=== PATIENT | female | born 1995 | race Two or more races ===

== ENCOUNTER 2025-08-15 09:25 | Observation (INO) | payer MEDICAID ==
--- NOTE | 2025-08-15 10:32 | DVH ---
BIOPHYSICAL PROFILE HISTORY: GDM TECHNIQUE: Multiple transabdominal real-time grayscale sonographic images through the gravid uterus of the fetus with duplex Doppler color flow and M-mode spectral analysis FINDINGS: BIOPHYSICAL PROFILE: breathing score: 2 movement score: 2 tone score: 2 Quantitative PHOENIX score: 2 (PHOENIX: 12.4 cm, MVP: 3.8 cm.) Total score: 8/8 The cervix obscured by head Single live fetus in cephalic presentation. heart rate 142 beats per minute. Posterior Grade 2 placenta without previa or abruption Single live fetus at 33w, 3 days Biophysical profile score 8/8 corresponding to an CAROL of 09/30/2025 IMPRESSION: 1. Biophysical profile score: 8/8
[2025-08-15 11:25] LABS: Hematocrit 36.1 % (36.0-46.0); Hemoglobin 12.4 g/dL (12.2-16.2); Mean Corpuscular Hemoglobin 31.5 pg (28.0-32.0); Mean Corpuscular Volume 91.6 fL (80.0-100.0); Nucleated Red Blood Cells % 0.0 %
[2025-08-15] MEDS ORDERED: LABE300T5 PO (11:26)
[2025-08-15] MEDS ORDERED: ASPI-543 PO (11:26)
[2025-08-15] MEDS ORDERED: PREN1TAB71 OR (11:26)
[2025-08-15 11:40] LABS: Alanine Aminotransferase 17 U/L (7-40); Albumin 3.8 g/dL (3.2-4.8); Anion Gap 11 (5-15); BUN/Creatinine Ratio 14.6 (10.0-20.0); Calcium 9.3 mg/dL (8.7-10.4); Carbon Dioxide 23 mmol/L (20-31); Chloride 105 mmol/L (98-107); Glucose 81 mg/dL (74-106); INR 0.97 (0.9-1.15); Partial Thromboplastin Time 26.8 SEC (24.5-34.5); Potassium 4.1 mmol/L (3.5-5.1); Prothrombin Time 10.3 sec (9.3-11.8); Sodium 139 mmol/L (136-145); Total Protein 7.0 g/dL (5.7-8.2); Uric Acid 4.1 mg/dL (3.1-7.8)
[2025-08-15 11:41] LABS: Bilirubin, Total 0.4 mg/dL (0.2-1.0)
[2025-08-15 11:45] LABS: Alkaline Phosphatase 117 U/L (46-116); Blood Urea Nitrogen 7 mg/dL (9-23)
[2025-08-15 11:52] LABS: Urine Protein, UAD 1+ (Negative)
[2025-08-15 11:59] LABS: Protein, Urine 56.6 mg/dL (1-14)
--- NOTE | 2025-08-15 12:46 | DVHDS2 ---
Physician Discharge Progress N Final Diagnosis: gdm 30wks Operations or Procedures: Operations or Procedures nst reactive reviwed,sono Condition on Discharge: Good Disposition: Home Discharge Instructions: Diet: Regular, Consistent carbohydrate Activity: No Restrictions, As Tolerated Medications: na Follow Up Care: Specialist: 5d Discharge Statement: "Patient was advised to return to the ER or call 911 if any headaches, dizziness, shortness of breath, chest pain, abdominal pain, bleeding, fevers, or worsening of medical condition. Patient was counseled about treatment plan, medications, possible side effects, patientverbalized understanding. All questions were answered to the best of my ability. This discharge took greater then 30 minutes in planning, reviewing documentation, counseling the patient, and discussing with other team members." Visit Coding OBGYN Date of Service: Aug 15, 2025 Billing Provider: MINOR ELIAS DO POST DOCTORAL RESEARCHER Common Visit Codes: [id number] OBS CARE (HIGH) POST DOCTORAL RESEARCHER Procedure Codes: 00425-02- NON-STRESS TEST MINOR ELIAS DO Aug 15, 2025 12:46
== END 2025-08-15 11:45 | disposition home or self-care (01) ==
LOC: LDRP 09:25
PROVIDERS: ADMIT Obstetrics & Gynecology; ATTEND Obstetrics & Gynecology
DX: O24.419 Gestational diabetes mellitus in pregnancy, unspecified control (principal); Z3A.30 30 weeks gestation of pregnancy; Z98.890 Other specified postprocedural states; Z79.899 Other long term (current) drug therapy; Z86.2 Personal history of diseases of the blood and blood-forming organs and certain disorders involving the immune mechanism
CPT/HCPCS: 36415; 59025; 76819; 80053; 81001; 81002; 82570; 84156; 84550; 85025; 85610; 85730; G0378

== ENCOUNTER 2025-08-19 08:05 | Observation (INO) | payer MEDICAID ==
[~2025-08-19 08:05] MED LIST: ASPI-543 PO; LABE300T5 PO; PREN1TAB71 OR
[2025-08-19] MEDS ORDERED: NITR-87 PO (09:25)
--- NOTE | 2025-08-19 10:22 | DVHDS2 ---
Physician Discharge Progress N Final Diagnosis: [facility] 31wks Operations or Procedures: Operations or Procedures nst reactive reviwed,sono Condition on Discharge: Good Disposition: Home Discharge Instructions: Diet: Regular Activity: No Restrictions, As Tolerated Medications: na Follow Up Care: Specialist: 1w Discharge Statement: "Patient was advised to return to the ER or call 911 if any headaches, dizziness, shortness of breath, chest pain, abdominal pain, bleeding, fevers, or worsening of medical condition. Patient was counseled about treatment plan, medications, possible side effects, patientverbalized understanding. All questions were answered to the best of my ability. This discharge took greater then 30 minutes in planning, reviewing documentat ion, counseling the patient, and discussing with other team members." Visit Coding OBGYN Date of Service: Aug 19, 2025 Billing Provider: MINOR ELIAS DO MANAGER ASSURANCE Common Visit Codes: 37100-BYPDPCV OBS CARE (HIGH) MANAGER ASSURANCE Procedure Codes: 39995-79- NON-STRESS TEST MINOR ELIAS DO Aug 19, 2025 10:22
== END 2025-08-19 09:31 | disposition home or self-care (01) ==
LOC: UNDOADMOB 08:05 → LDRP 08:05
PROVIDERS: ADMIT Obstetrics & Gynecology; ATTEND Obstetrics & Gynecology
DX: O13.3 Gestational [pregnancy-induced] hypertension without significant proteinuria, third trimester (principal); Z3A.31 31 weeks gestation of pregnancy; Z98.890 Other specified postprocedural states
CPT/HCPCS: 59025; 81002; 94760; G0378

== ENCOUNTER 2025-08-23 07:57 | Observation (INO) | payer MEDICAID ==
[~2025-08-23 07:57] MED LIST changes: +NITR-87 PO
[2025-08-23 09:49] LABS: Hematocrit 34.9 % (36.0-46.0); Hemoglobin 11.9 g/dL (12.2-16.2); Mean Corpuscular Hemoglobin 31.6 pg (28.0-32.0); Mean Corpuscular Volume 92.5 fL (80.0-100.0); Nucleated Red Blood Cells % 0.1 %
[2025-08-23 09:53] LABS: Urine Protein, UAD 1+ (Negative)
[2025-08-23 09:54] LABS: Protein, Urine 111.2 mg/dL (1-14)
[2025-08-23 10:00] LABS: Alanine Aminotransferase 24 U/L (7-40); Albumin 3.6 g/dL (3.2-4.8); Anion Gap 10 (5-15); BUN/Creatinine Ratio 13.5 (10.0-20.0); Calcium 9.0 mg/dL (8.7-10.4); Carbon Dioxide 24 mmol/L (20-31); Chloride 105 mmol/L (98-107); Glucose 83 mg/dL (74-106); Potassium 3.7 mmol/L (3.5-5.1); Sodium 139 mmol/L (136-145); Total Protein 6.7 g/dL (5.7-8.2)
[2025-08-23 10:01] LABS: Bilirubin, Total 0.3 mg/dL (0.2-1.0)
[2025-08-23 10:03] LABS: Blood Urea Nitrogen 7 mg/dL (9-23)
[2025-08-23 10:04] LABS: INR 0.95 (0.9-1.15); Partial Thromboplastin Time 26.4 SEC (24.5-34.5); Prothrombin Time 10.1 sec (9.3-11.8)
[2025-08-23 10:13] LABS: Uric Acid 4.2 mg/dL (3.1-7.8)
[2025-08-23 10:18] LABS: Alkaline Phosphatase 121 U/L (46-116)
--- NOTE | 2025-08-23 11:51 | DVHDS2 ---
Physician Discharge Progress N Final Diagnosis: pih 31wks Operations or Procedures: Operations or Procedures nst reactive reviwed,sono Condition on Discharge: Good Disposition: Home Discharge Instructions: Diet: Regular Activity: No Restrictions, As Tolerated Medications: na Follow Up Care: Specialist: 3d Discharge Statement: "Patient was advised to return to the ER or call 911 if any headaches, dizziness, shortness of breath, chest pain, abdominal pain, bleeding, fevers, or worsening of medical condition. Patient was counseled about treatment plan, medications, possible side effects, patientverbalized understanding. All questions were answered to the best of my ability. This discharge took greater then 30 minutes in planning, reviewing documentat ion, counseling the patient, and discussing with other team members." Visit Coding OBGYN Date of Service: Aug 23, 2025 Billing Provider: MINOR ELIAS DO SHIPYARD PAINTER APPRENTICE Common Visit Codes: [id number] OBS CARE (HIGH) SHIPYARD PAINTER APPRENTICE Procedure Codes: 42725-52- NON-STRESS TEST MINOR ELIAS DO Aug 23, 2025 11:51
== END 2025-08-23 10:38 | disposition home or self-care (01) ==
LOC: LDRP 07:57
PROVIDERS: ADMIT Obstetrics & Gynecology; ATTEND Obstetrics & Gynecology
DX: O13.3 Gestational [pregnancy-induced] hypertension without significant proteinuria, third trimester (principal); Z3A.31 31 weeks gestation of pregnancy; Z98.890 Other specified postprocedural states
CPT/HCPCS: 36415; 59025; 80053; 81001; 81002; 82570; 84156; 84550; 85025; 85610; 85730; 94760; A4649; G0378

== ENCOUNTER 2025-08-26 08:02 | Observation (INO) | payer MEDICAID ==
[~2025-08-26] VITALS: Ht 167.6 cm; Wt 87.1 kg
--- NOTE | 2025-08-26 09:03 | DVH ---
BIOPHYSICAL PROFILE HISTORY: PIH Comparison Study: US BIOPHYSICAL PROFILE on DOS: 08/15/25 TECHNIQUE: Multiple real-time grayscale sonographic images through the gravid uterus of the fetus with duplex Doppler color flow and M-mode spectral analysis FINDINGS: BIOPHYSICAL PROFILE: breathing score: 2 movement score: 2 tone score: 2 Quantitative PHOENIX score: 2 (PHOENIX: 8.9 Cm.) Total score: 8 The cervix is not visualized Single live fetus in breech presentation. heart rate 134 beats per minute. Posterior placenta without previa or abruption IMPRESSION: Biophysical profile score: 8
[2025-08-26 11:32] LABS: Urine Protein, UAD 1+ (Negative)
[2025-08-26 11:33] LABS: Protein, Urine 97.2 mg/dL (1-14)
[2025-08-26 12:10] LABS: 24 Hr. Total Protein, Urine 1944.0 mg/24 Hr (<149.1); Urine Total Volume, 24 Hours 2000.0 mL
--- NOTE | 2025-08-26 14:27 | DVHDS2 ---
Physician Discharge Progress N Final Diagnosis: testing for PreEclampsia Operations or Procedures: Operations or Procedures 29yo IUP@32.1wks VSS NST reactive FKC/PTL/PreE precautions reviewed. Dr. Guzman consulted, agrees with POC. Laboratory Tests Test 08/26/25 08:10 Range/Units Urine Color Yellow Yellow Urine Clarity Turbid H Clear Urine pH 6.5 5.0-9.0 Urine Specific Warner 1.019 1.001-1.035 Urine Protein 1+ H Negative Urine Ketones Negative Negative Urine Blood 2+ H Negative /uL Urine Nitrite Negative Negative Urine Bilirubin Negative Negative Urine Urobilinogen Normal Negative mg/dL Urine Leukocyte Esterase Negative Negative /uL Urine RBC 11 0 - 4 /hpf Urine Microscopic WBC 7 H 0-5 /HPF Urine Squamous Epithelial Cells Mod <5 /hpf Urine Bacteria None seen None Seen /hpf Urine Mucus Few None Seen Urine Creatinine 135.95 H 30.0-125.0 mg/dL Urine Total Protein 24 Hour 1944.0 <149.1 mg/24 Hr Urine Protein/Creatinine Ratio 0.71 Urine Glucose Normal Normal mg/dL Urine Total Protein 97.2 H 1-14 mg/dL Other Interventions Other Interventions [place] [address] Ph: [phone] DIAGNOSTIC IMAGING Diagnostic Imaging Report : [id number] Signed PATIENT: DAVID PAULACCT: [id number] UNIT: [id number] : 1995 LOC: [facility] ROOM / BED: [facility] / A AGE / SEX: 29 / F ADM STATUS: ADM IN SERVICE [id number] ORDERING PHYSICIAN: ALICIA CHAVEZ CNM PROCEDURE(s): BPP - BIOPHYSICAL PROFILE REASON: [facility] ORDER NUMBER(s): [id number], ACCESSION NUMBER(s): [id number] BIOPHYSICAL PROFILE HISTORY: [facility] Comparison Study: US BIOPHYSICAL PROFILE on DOS: 08/15/25 TECHNIQUE: Multiple real-time grayscale sonographic images through the gravid uterus of the fetus with duplex Doppler color flow and M-mode spectral analysis FINDINGS: BIOPHYSICAL PROFILE: breathing score: 2 movement score: 2 tone score: 2 Quantitative PHOENIX score: 2 (PHOENIX: 8.9 Cm.) Total score: 8 The cervix is not visualized Single live fetus in breech presentation. heart rate 134 beats per minute. Posterior placenta without previa or abruption IMPRESSION: Biophysical profile score: 8 ATED BY: PETER GUZMÁN MD DICTATED DATE/TIME: 08/26/25899 SIGNED BY: PETER GUZMÁN MD SIGNED DATE/TIME: 08/26/25899 CC: Condition on Discharge: Stable Disposition: Home Discharge Instructions: Diet: Regular Activity: No Restrictions, As Tolerated Medications: see med list Follow Up Care: Specialist: f/u in 3 days Discharge Statement: "Patient was advised to return to the ER or call 911 if any headaches, dizziness, shortness of breath, chest pain, abdominal pain, bleeding, fevers, or worsening of medical condition. Patient was counseled about treatment plan, medications, possible side effects, patientverbalized understanding. All questions were answered to the best of my ability. This discharge took greater then 30 minutes in planning, reviewing documentation, counseling the patient, and discussing with other team members." Visit Coding OBGYN Date of Service: Aug 26, 2025 Billing Provider: ALICIA CHAVEZ CNM CLINICAL SYSTEMS EDUCATOR Common Visit Codes: [id number] OBS CARE (HIGH) CLINICAL SYSTEMS EDUCATOR Procedure Codes: 99569-96- NON-STRESS TEST ALICIA CHAVEZ CNM Aug 26, 2025 14:27
== END 2025-08-26 10:24 | disposition home or self-care (01) ==
LOC: UNDOADMOB 08:02 → LDRP 08:02 → UNDODISOB 10:24
PROVIDERS: ADMIT Obstetrics & Gynecology; ATTEND Obstetrics & Gynecology
DX: O13.3 Gestational [pregnancy-induced] hypertension without significant proteinuria, third trimester (principal); Z3A.32 32 weeks gestation of pregnancy; Z98.890 Other specified postprocedural states
CPT/HCPCS: 59025; 76819; 81001; 81002; 82570; 84156; A4649; G0378

== ENCOUNTER 2025-08-29 05:09 | Observation (INO) | payer MEDICAID ==
[~2025-08-29] VITALS: Ht 167.6 cm; Wt 90.7 kg
[2025-08-29 09:09] LABS: Hematocrit 35.8 % (36.0-46.0); Hemoglobin 12.2 g/dL (12.2-16.2); Mean Corpuscular Hemoglobin 31.3 pg (28.0-32.0); Mean Corpuscular Volume 91.7 fL (80.0-100.0); Nucleated Red Blood Cells % 0.1 %
--- NOTE | 2025-08-29 09:26 | DVH ---
BIOPHYSICAL PROFILE HISTORY: PIH TECHNIQUE: Multiple transabdominal real-time grayscale sonographic images through the gravid uterus of the fetus with duplex Doppler color flow and M-mode spectral analysis FINDINGS: BIOPHYSICAL PROFILE: breathing score: 2 movement score: 2 tone score: 2 Quantitative PHOENIX score: 2 (PHOENIX: 13.3 Cm.) Total score: 8 The cervix was not seen Single live fetus in cephalic presentation. heart rate 142 beats per minute. Grade II posterior fundal placenta without previa or abruption IMPRESSION: Biophysical profile score: 8/8
[2025-08-29 09:31] LABS: Urine Protein, UAD Negative (Negative)
[2025-08-29 09:33] LABS: Alanine Aminotransferase 17 U/L (7-40); Albumin 3.8 g/dL (3.2-4.8); Alkaline Phosphatase 127 U/L (46-116); Anion Gap 10 (5-15); BUN/Creatinine Ratio 14.0 (10.0-20.0); Bilirubin, Total 0.3 mg/dL (0.2-1.0); Blood Urea Nitrogen 7 mg/dL (9-23); Calcium 9.4 mg/dL (8.7-10.4); Carbon Dioxide 23 mmol/L (20-31); Chloride 105 mmol/L (98-107); Glucose 88 mg/dL (74-106); Potassium 3.9 mmol/L (3.5-5.1); Sodium 138 mmol/L (136-145); Total Protein 7.0 g/dL (5.7-8.2)
[2025-08-29 09:37] LABS: INR 0.95 (0.9-1.15); Partial Thromboplastin Time 26.2 SEC (24.5-34.5); Prothrombin Time 10.1 sec (9.3-11.8)
[2025-08-29 10:27] LABS: Uric Acid 3.9 mg/dL (3.1-7.8)
[2025-08-29 11:12] LABS: Protein, Urine 21.7 mg/dL (1-14)
[2025-08-29] MEDS: BETAMETHASONE ACET (30mg/5ml) 5ml Vial 6mg/ml IM ONE (11:41)
--- NOTE | 2025-08-29 18:04 | DVHDS2 ---
Physician Discharge Progress N Final Diagnosis: IUP 32 wk, Pre-Eclampsia w/out severe features Secondary Diagnosis: Encounter for surveillance Operations or Procedures: Operations or Procedures NST/BPP/PHOENIX all NORMAL PIH labs normal except elevated P/C ratio, previously elevated 24h urine protein Celestone #1 of 2 given Condition on Discharge: Guarded Disposition: Home Discharge Instructions: Diet: Regular Activity: Light activity Follow Up/Referral: 1 day for 2nd celestone injection Medications: NA Follow Up Care: Discharge Statement: "Patient was advised to return to the ER or call 911 if any headaches, dizziness, shortness of breath, chest pain, abdominal pain, bleeding, fevers, or worsening of medical condition. Patient was counseled about treatment plan, medications, possible side effects, patientverbalized understanding. All questions were answered to the best of my ability. This discharge took greater then 30 minutes in planning, reviewing documentat ion, counseling the patient, and discussing with other team members." Visit Coding OBGYN Date of Service: Aug 29, 2025 Billing Provider: HILARY HANDY DO DENTAL ASSOCIATE Common Visit Codes: 91251-MMJ/OBS SAME DATE (HIGH) DENTAL ASSOCIATE Procedure Codes: 63443-78- NON-STRESS TEST HILARY HANDY DO Aug 29, 2025 18:04
== END 2025-08-29 11:55 | disposition home or self-care (01) ==
LOC: LDRP 08:05 → UNDOADMOB 08:05 → LDRP 08:11
PROVIDERS: ADMIT Obstetrics & Gynecology; ATTEND Obstetrics & Gynecology
DX: O14.03 Mild to moderate pre-eclampsia, third trimester (principal); Z3A.32 32 weeks gestation of pregnancy; Z79.899 Other long term (current) drug therapy; Z98.890 Other specified postprocedural states
CPT/HCPCS: 59025; 76819; 80053; 81001; 82570; 84156; 84550; 85610; 85730; 94760; 96372; A4649; G0378; J0702; 36415; 82575; 85025

== ENCOUNTER 2025-08-30 03:54 | Observation (INO) | payer MEDICAID ==
[~2025-08-30] VITALS: Ht 167.6 cm; Wt 90.7 kg
[~2025-08-30 03:54] MED LIST changes: -NITR-87 PO
--- NOTE | 2025-08-30 13:48 | DVH ---
CLINICAL HISTORY: -induced hypertension. COMPARISON: US BIOPHYSICAL PROFILE on DOS: 08/29/25, US BIOPHYSICAL PROFILE on DOS: 08/26/25, US BIOPHYSICAL PROFILE on DOS: 08/15/25 TECHNIQUE: biophysical profile was performed. Transabdominal sonographic images of the fetus were obtained. FINDINGS: The fetus is in cephalic position. heart rate measures 147 BPM. Amniotic fluid index measures 11.5 cm. The placenta is fundal in position without visualized evidence of previa or abruption. BPP profile is an overall score of 8/8, with 2/2 points for breathing, with at least one episode of breathing over a 30 second duration during a 30 minute observation, 2/2 points for movements, with 3 or more discrete body or limb movements, 2/2 points for tone, with one or more episodes of extremity extension with return to flexion, or opening and closing of hand, and 2/2 points for amniotic fluid, with at least 1 pocket of amniotic fluid that measures 2 cm in 2 perpendicular planes. IMPRESSION: BPP score of 8/8.
[2025-08-30] MEDS: BETAMETHASONE ACET (30mg/5ml) 5ml Vial 6mg/ml IM ONE (14:15)
--- NOTE | 2025-08-30 15:15 | DVHDS2 ---
Physician Discharge Progress N Final Diagnosis: IUP 32 wk, Pre-Eclampsia w/out severe features Secondary Diagnosis: Encounter for surveillance Operations or Procedures: Operations or Procedures NST/BPP/PHOENIX all NORMAL Celestone #2 of 2 given BPs normal Condition on Discharge: Stable Disposition: Home Discharge Instructions: Diet: Regular, Cardiac 2g Na,low cholest Activity: No Restrictions, As Tolerated Follow Up/Referral: as sched Medications: NA Follow Up Care: Discharge Statement: "Patient was advised to return to the ER or call 911 if any headaches, dizziness, shortness of breath, chest pain, abdominal pain, bleeding, fevers, or worsening of medical condition. Patient was counseled about treatment plan, medications, possible side effects, patientverbalized understanding. All questions were answered to the best of my ability. This discharge took greater then 30 minutes in planning, reviewing documentation, counseling the patient, and discussing with other team members." Visit Coding OBGYN Date of Service: Aug 30, 2025 Billing Provider: HILARY HANDY DO SEED TESTER Common Visit Codes: 16179-DQF/OBS SAME DATE (HIGH) SEED TESTER Procedure Codes: 45076-28- NON-STRESS TEST HILARY HANDY DO Aug 30, 2025 15:15
== END 2025-08-30 14:55 | disposition home or self-care (01) ==
LOC: LDRP 12:52
PROVIDERS: ADMIT Obstetrics & Gynecology; ATTEND Obstetrics & Gynecology
DX: O14.03 Mild to moderate pre-eclampsia, third trimester (principal); Z3A.32 32 weeks gestation of pregnancy; Z98.890 Other specified postprocedural states
CPT/HCPCS: 59025; 76819; 81002; 94760; 96372; A4649; G0378

== ENCOUNTER 2025-09-02 06:15 | Observation (INO) | payer MEDICAID ==
[2025-09-02 08:48] LABS: Hematocrit 36.1 % (36.0-46.0); Hemoglobin 12.2 g/dL (12.2-16.2); Mean Corpuscular Hemoglobin 31.0 pg (28.0-32.0); Mean Corpuscular Volume 91.5 fL (80.0-100.0); Nucleated Red Blood Cells % 0.1 %
[2025-09-02 09:09] LABS: Alanine Aminotransferase 21 U/L (7-40); Albumin 3.7 g/dL (3.2-4.8); Anion Gap 11 (5-15); BUN/Creatinine Ratio 22.2 (10.0-20.0); Blood Urea Nitrogen 10 mg/dL (9-23); Calcium 9.2 mg/dL (8.7-10.4); Carbon Dioxide 22 mmol/L (20-31); Chloride 105 mmol/L (98-107); Potassium 3.6 mmol/L (3.5-5.1); Sodium 138 mmol/L (136-145); Total Protein 6.9 g/dL (5.7-8.2); Uric Acid 3.5 mg/dL (3.1-7.8)
[2025-09-02 09:12] LABS: INR 0.94 (0.9-1.15); Partial Thromboplastin Time 24.3 SEC (24.5-34.5); Prothrombin Time 10.0 sec (9.3-11.8)
[2025-09-02 09:20] LABS: Alkaline Phosphatase 121 U/L (46-116); Bilirubin, Total 0.3 mg/dL (0.2-1.0); Glucose 136 mg/dL (74-106)
--- NOTE | 2025-09-02 09:32 | DVH ---
CLINICAL HISTORY: -induced hypertension. COMPARISON: US BIOPHYSICAL PROFILE on DOS: 08/30/25, US BIOPHYSICAL PROFILE on DOS: 08/29/25, US BIOPHYSICAL PROFILE on DOS: 08/26/25 TECHNIQUE: biophysical profile was performed. Transabdominal sonographic images of the fetus were obtained. FINDINGS: The fetus is in cephalic position. heart rate measures 147 BPM. Amniotic fluid index measures 6.6 cm. The placenta is posterior in position. BPP profile is an overall score of 8/8, with 2/2 points for breathing, with at least one episode of breathing over a 30 second duration during a 30 minute observation, 2/2 points for movements, with 3 or more discrete body or limb movements, 2/2 points for tone, with one or more episodes of extremity extension with return to flexion, or opening and closing of hand, and 2/2 points for amniotic fluid, with at least 1 pocket of amniotic fluid that measures 2 cm in 2 perpendicular planes. IMPRESSION: 1. BPP score of 8/8. 2. Amniotic fluid index of 6.6 cm. MVP is 2.7 cm.
[2025-09-02 09:54] LABS: Protein, Urine 104.6 mg/dL (1-14)
[2025-09-02 10:01] LABS: Urine Protein, UAD 1+ (Negative)
--- NOTE | 2025-09-05 13:28 | DVHDS2 ---
Physician Discharge Progress N Final Diagnosis: oligo,chtn with superimposed preeclampsia Operations or Procedures: Operations or Procedures nst reactive cass luong Commentary: Commentary transferred to [facility] dr irvin accepted the transfer Condition on Discharge: Higher Level of Care Disposition: Acute Care Facility Discharge Instructions: Diet: Regular Activity: Bed rest Medications: na Follow Up Care: Specialist: to [facility] Discharge Statement: "Patient was advised to return to the ER or call 911 if any headaches, dizziness, shortness of breath, chest pain, abdominal pain, bleeding, fevers, or worsening of medical condition. Patient was counseled about treatment plan, medications, possible side effects, patientverbalized understanding. All questions were answered to the best of my ability. This discharge took greater then 30 minutes in planning, reviewing documentation, counseling the patient, and discussing with other team members." Visit Coding OBGYN Date of Service: Sep 02, 2025 Billing Provider: MINOR ELIAS DO DRESSING ROOM PORTER Common Visit Codes: 40560-YSGDMHD OBS CARE (HIGH) DRESSING ROOM PORTER Procedure Codes: 63446-12- NON-STRESS TEST MINOR ELIAS DO Sep 05, 2025 13:28
--- NOTE | 2025-09-05 13:30 | DVHTS ---
Transfer Summary Transfer Summary Date of Admission Sep 02, 2025 at 09:30 Date of Transfer: Sep 02, 2025 Transfer Diagnosis chtn with superimposed precelampsia,oligi Brief Hx & Hospital Course: pt has chtn with low sidney subseq pt is transferred to [facility] .dr churchill accepted transfer Transfer to: [facility] Discharge Instructions: stable Transfer Status stable Scheduled Aspirin (Aspir-Low), 81 MG PO DAILY, (Reported) Labetalol Hcl (Labetalol Hcl), 300 MG PO BID, (Reported) Miscellaneous Medications Vit W/ Ferrous Fumara (Pnv Plus Multivi), 1 OR, (Reported) Visit Coding OBGYN Date of Service: Sep 02, 2025 Billing Provider: MINOR ELIAS DO LENS EXAMINER Common Visit Codes: 36286-[id number] OBS CARE (HIGH) LENS EXAMINER Procedure Codes: 52107-36- NON-STRESS TEST MINOR ELIAS DO Sep 05, 2025 13:30
== END 2025-09-02 11:20 | disposition critical access hospital (66) ==
LOC: LDRP 08:05 → UNDOADMOB 08:05 → OBSVTOIN 09:30 → INTOOBSV 09:30 → LDRP 09:30
PROVIDERS: ADMIT Obstetrics & Gynecology; ATTEND Obstetrics & Gynecology
DX: O11.3 Pre-existing hypertension with pre-eclampsia, third trimester (principal); Z3A.33 33 weeks gestation of pregnancy; Z79.899 Other long term (current) drug therapy
CPT/HCPCS: 36415; 59025; 76819; 80053; 81001; 81002; 82570; 84156; 84550; 85025; 85610; 85730; 94760; A4649; G0378

== ENCOUNTER 2025-09-06 02:30 | Observation (INO) | payer MEDICAID ==
[2025-09-06 10:56] LABS: Hematocrit 36.7 % (36.0-46.0); Hemoglobin 12.4 g/dL (12.2-16.2); Mean Corpuscular Hemoglobin 31.1 pg (28.0-32.0); Mean Corpuscular Volume 91.8 fL (80.0-100.0); Nucleated Red Blood Cells % 0.0 %
--- NOTE | 2025-09-06 10:56 | DVH ---
BIOPHYSICAL PROFILE HISTORY: r/o pih labs Comparison Study: US BIOPHYSICAL PROFILE on DOS: 09/02/25, US BIOPHYSICAL PROFILE on DOS: 08/30/25, US BIOPHYSICAL PROFILE on DOS: 08/29/25, US BIOPHYSICAL PROFILE on DOS: 08/26/25, US BIOPHYSICAL PROFILE on DOS: 08/15/25 TECHNIQUE: Multiple real-time grayscale sonographic images through the gravid uterus of the fetus with duplex doppler color flow and M-mode spectral analysis FINDINGS: BIOPHYSICAL PROFILE: breathing score: 2 movement score: 2 tone score: 2 Quantitative PHOENIX score: 2 (PHOENIX: 9.8 cm.) Total score: 8 Single live fetus in cephalic presentation. heart rate 136 beats per minute. Grade 2 placenta without previa or abruption Biophysical profile score 8 corresponding to an CAROL of 10/20/25 IMPRESSION: 1. Biophysical profile score: 8
[2025-09-06 11:06] LABS: Urine Budding Yeast OCCASIONAL /hpf (None Seen); Urine Protein, UAD 1+ (Negative)
[2025-09-06 11:10] LABS: Alanine Aminotransferase 19 U/L (7-40); Albumin 3.7 g/dL (3.2-4.8); Anion Gap 9 (5-15); BUN/Creatinine Ratio 17.0 (10.0-20.0); Calcium 9.1 mg/dL (8.7-10.4); Carbon Dioxide 22 mmol/L (20-31); Chloride 105 mmol/L (98-107); Potassium 4.0 mmol/L (3.5-5.1); Sodium 136 mmol/L (136-145); Total Protein 6.9 g/dL (5.7-8.2); Uric Acid 4.4 mg/dL (3.1-7.8)
[2025-09-06 11:11] LABS: Bilirubin, Total 0.4 mg/dL (0.2-1.0); INR 0.93 (0.9-1.15); Partial Thromboplastin Time 26.2 SEC (24.5-34.5); Prothrombin Time 9.9 sec (9.3-11.8)
[2025-09-06 11:12] LABS: Alkaline Phosphatase 132 U/L (46-116); Blood Urea Nitrogen 9 mg/dL (9-23); Glucose 145 mg/dL (74-106)
[2025-09-06 11:13] LABS: Protein, Urine 97.2 mg/dL (1-14)
== END 2025-09-06 13:20 | disposition home or self-care (01) ==
LOC: LDRP 10:12
PROVIDERS: ADMIT Obstetrics & Gynecology; ATTEND Obstetrics & Gynecology
DX: O13.3 Gestational [pregnancy-induced] hypertension without significant proteinuria, third trimester (principal); Z3A.33 33 weeks gestation of pregnancy; Z98.890 Other specified postprocedural states; Z79.899 Other long term (current) drug therapy
CPT/HCPCS: 59025; 76819; 80053; 81001; 81002; 82570; 84156; 84550; 85610; 85730; 94760; A4649; G0378

== ENCOUNTER 2025-09-07 06:51 | Observation (INO) | payer MEDICAID ==
--- NOTE | 2025-09-07 12:04 | DVH ---
BIOPHYSICAL PROFILE HISTORY: Failed NST/PIH TECHNIQUE: Multiple transabdominal real-time grayscale sonographic images through the gravid uterus of the fetus with duplex Doppler color flow and M-mode spectral analysis FINDINGS: Biophysical score of 8/8. heart rate of 142 beats per minute. Cephalic position. PHOENIX of 8.6 cm. MVP of 4 cm. Posterior placental location. No placenta previa or abruptio. IMPRESSION: 1. Biophysical profile score: 8/8
--- NOTE | 2025-09-07 15:56 | DVHDS2 ---
Discharge Summary Date of Admission Sep 07, 2025 at 11:04 Date of Discharge: Sep 07, 2025 Admitting Diagnosis Thirty-three weeks here for filled NST close observation being performed daily with NST BPP; she was previously flown to [facility] and subsequently discharged. Wounds: None Brief Hx & Hospital Course: Patient had BPP at a elevate NST is nonreactive otherwise everything reassuring Operations or Procedures NST BPP performed Condition at Discharge: Good Final Diagnosis/Problems List 33 week and nonreactive NST reassuring BPP follow up 24 hours labor delivery kick counts labor precautions. Also follow up with perinatology and her primary OB as well. Discharge Disposition: Home SNF Discharge Will this Physician continue t: No Discharge Instruct/Medications Diet: Cardiac 2g Na,low cholest Activity: No Restrictions, As Tolerated Activity comment: Kick counts labor precautions patient is currently feeling the baby kick Follow Up/Referral: 24 hours NST BPP labor delivered; 4 days from today. Medications: None Scheduled Aspirin (Aspir-Low), 81 MG PO DAILY, (Reported) Labetalol Hcl (Labetalol Hcl), 300 MG PO BID, (Reported) Miscellaneous Medications Vit W/ Ferrous Fumara (Pnv Plus Multivi), 1 OR, (Reported) Discharge Statement: "Patient was advised to return to the ER or call 911 if any headaches, dizziness, shortness of breath, chest pain, abdominal pain, bleeding, fevers, or worsening of medical condition. Patient was counseled about treatment plan, medications, possible side effects, patientverbalized understanding. All questions were answered to the best of my ability. This discharge took greater then 30 minutes in planning, reviewing documentation, counseling the patient, and discussing with other team members." ASSESSMENT ASSESSMENT Assessment Visit Coding OBGYN Date of Service: Sep 07, 2025 Billing Provider: EDILBERTO ESTRADA DO ASW/ASUW TACTICAL AIR CONTROLLER Common Visit Codes: 38736-YBM/OBS SAME DATE (LOW), 02510-PZJ/OBS SAME DATE (MOD), 39748-KOQ/OBS SAME DATE (HIGH) ASW/ASUW TACTICAL AIR CONTROLLER Procedure Codes: 03933-47- NON-STRESS TEST EDILBERTO ESTRADA DO Sep 07, 2025 15:56
== END 2025-09-07 13:00 | disposition home or self-care (01) ==
LOC: LDRP 11:04
PROVIDERS: ADMIT Obstetrics & Gynecology; ATTEND Obstetrics & Gynecology
DX: O13.3 Gestational [pregnancy-induced] hypertension without significant proteinuria, third trimester (principal); Z3A.33 33 weeks gestation of pregnancy; Z98.890 Other specified postprocedural states
CPT/HCPCS: 59025; 76819; 81002; 94760; A4649; G0378

== ENCOUNTER 2025-09-08 05:47 | Observation (INO) | payer MEDICAID ==
--- NOTE | 2025-09-08 11:08 | DVHDS2 ---
Discharge Summary Date of Admission Sep 08, 2025 at 10:02 Date of Discharge: Sep 08, 2025 Admitting Diagnosis 34+ weeks here rule out PIH Wounds: None Labs/Diagnostic Data: PIH labs NST BPP performed Brief Hx & Hospital Course: Patient here for rule out PH NST BPP in PH laps performed Consults/Reason for consult None Operations or Procedures None Condition at Discharge: Good Final Diagnosis/Problems List Before +weeks rule out PH Discharge Disposition: Eloped Discharge Instruct/Medications Diet: Regular Diet comment: Kick counts PH precautions labor precautions Activity: Light activity Follow Up/Referral: Weekly and/or as Dr. Guzman and has instructed Scheduled Aspirin (Aspir-Low), 81 MG PO DAILY, (Reported) Labetalol Hcl (Labetalol Hcl), 300 MG PO BID, (Reported) Miscellaneous Medications Vit W/ Ferrous Fumara (Pnv Plus Multivi), 1 OR, (Reported) Discharge Statement: "Patient was advised to return to the ER or call 911 if any headaches, dizziness, shortness of breath, chest pain, abdominal pain, bleeding, fevers, or worsening of medical condition. Patient was counseled about treatment plan, medications, possible side effects, patientverbalized understanding. All questions were answered to the best of my ability. This discharge took greater then 30 minutes in planning, reviewing documentation, counseling the patient, and discussing with other team members." ASSESSMENT ASSESSMENT Assessment Visit Coding OBGYN Date of Service: Sep 08, 2025 Billing Provider: EDILBERTO ESTRADA DO SAWMILL EQUIPMENT OPERATOR Common Visit Codes: 62994-KEK/OBS SAME DATE (LOW), 08243-FRC/OBS SAME DATE (HIGH) SAWMILL EQUIPMENT OPERATOR Procedure Codes: 41004-63- NON-STRESS TEST EDILBERTO ESTRADA DO Sep 08, 2025 11:08
--- NOTE | 2025-09-08 11:11 | DVH ---
BIOPHYSICAL PROFILE HISTORY: Failed NST/PIH TECHNIQUE: Multiple real-time grayscale sonographic images through the gravid uterus of the fetus with duplex Doppler color flow. FINDINGS: BIOPHYSICAL PROFILE: breathing score: 2 movement score: 2 tone score: 2 Quantitative PHOENIX score: 2 Total score: 8 out of 8 Single live intrauterine . heart rate 139 beats per minute. Cephalic lie. Placenta posteriorly positioned. PHOENIX 8.9 cm. Limited characterization in cervix, appears to measure approximately 3.2 cm in length and closed. IMPRESSION: Biophysical profile score: 8 out of 8
[2025-09-08 11:49] LABS: Hematocrit 33.6 % (36.0-46.0); Hemoglobin 11.7 g/dL (12.2-16.2); Mean Corpuscular Hemoglobin 31.5 pg (28.0-32.0); Mean Corpuscular Volume 90.5 fL (80.0-100.0); Nucleated Red Blood Cells % 0.0 %
[2025-09-08 12:03] LABS: INR 0.9 (0.9-1.15); Partial Thromboplastin Time 25.5 SEC (24.5-34.5); Prothrombin Time 9.6 sec (9.3-11.8)
[2025-09-08 12:06] LABS: Alanine Aminotransferase 21 U/L (7-40); Albumin 3.6 g/dL (3.2-4.8); Anion Gap 9 (5-15); BUN/Creatinine Ratio 15.6 (10.0-20.0); Blood Urea Nitrogen 12 mg/dL (9-23); Calcium 9.1 mg/dL (8.7-10.4); Carbon Dioxide 22 mmol/L (20-31); Chloride 105 mmol/L (98-107); Potassium 4.0 mmol/L (3.5-5.1); Sodium 136 mmol/L (136-145); Total Protein 6.7 g/dL (5.7-8.2); Uric Acid 4.3 mg/dL (3.1-7.8)
[2025-09-08 12:07] LABS: Bilirubin, Total 0.3 mg/dL (0.2-1.0)
[2025-09-08 12:08] LABS: Alkaline Phosphatase 133 U/L (46-116); Glucose 114 mg/dL (74-106)
[2025-09-08 12:30] LABS: Protein, Urine 109.1 mg/dL (1-14)
[2025-09-08 12:35] LABS: Urine Budding Yeast OCCASIONAL /hpf (None Seen); Urine Protein, UAD 1+ (Negative)
== END 2025-09-08 12:58 | disposition home or self-care (01) ==
LOC: LDRP 10:02 → UNDOADMOB 10:02 → LDRP 10:13
PROVIDERS: ADMIT Obstetrics & Gynecology; ATTEND Obstetrics & Gynecology
DX: O13.3 Gestational [pregnancy-induced] hypertension without significant proteinuria, third trimester (principal); Z3A.34 34 weeks gestation of pregnancy; Z98.890 Other specified postprocedural states
CPT/HCPCS: 36415; 59025; 76819; 80053; 81001; 81002; 82570; 84156; 84550; 85025; 85610; 85730; 94760; A4649; G0378

== ENCOUNTER 2025-09-11 16:11 | Observation (INO) | payer MEDICAID ==
[~2025-09-11] VITALS: Ht 165.1 cm; Wt 88.9 kg
--- NOTE | 2025-09-11 17:08 | DVH ---
BIOPHYSICAL PROFILE HISTORY: CHTN TECHNIQUE: Multiple real-time grayscale sonographic images through the gravid uterus of the fetus with duplex Doppler color flow. FINDINGS: BIOPHYSICAL PROFILE: breathing score: 2 movement score: 2 tone score: 2 Quantitative PHOENIX score: 2 Total score: 8 out of 8 Single live intrauterine . heart rate 143 beats per minute. Placenta posteriorly /fundally positioned. lie cephalic. PHOENIX 8.8 cm. IMPRESSION: Biophysical profile score: 8 out of 8
[2025-09-11 17:12] LABS: Urine Protein, UAD Negative (Negative)
[2025-09-11 17:14] LABS: Protein, Urine 23.0 mg/dL (1-14)
[2025-09-11 19:10] LABS: Protein, Urine 31.1 mg/dL (1-14)
[2025-09-11 19:18] LABS: 24 Hr. Total Protein, Urine 933.0 mg/24 Hr (<149.1); Urine Total Volume, 24 Hours 3000.0 mL
--- NOTE | 2025-09-12 07:19 | DVHDS2 ---
Physician Discharge Progress N Final Diagnosis: chtn 34wks Operations or Procedures: Operations or Procedures nst reactive reviwed,sono Condition on Discharge: Good Disposition: Home Discharge Instructions: Diet: Cardiac 2g Na,low cholest Activity: No Restrictions, As Tolerated Medications: na Follow Up Care: Specialist: 2d Discharge Statement: "Patient was advised to return to the ER or call 911 if any headaches, dizziness, shortness of breath, chest pain, abdominal pain, bleeding, fevers, or worsening of medical condition. Patient was counseled about treatment plan, medications, possible side effects, patientverbalized understanding. All questions were answered to the best of my ability. This discharge took greater then 30 minutes in planning, reviewing documentation, counseling the patient, and discussing with other team members." Visit Coding OBGYN Date of Service: Sep 11, 2025 Billing Provider: MINOR ELIAS DO FAMILY PROTECTION SPECIALIST Common Visit Codes: [id number] INP/OBS CARE (HIGH) FAMILY PROTECTION SPECIALIST Procedure Codes: 22741-64- NON-STRESS TEST MINOR ELIAS DO Sep 12, 2025 07:19
== END 2025-09-11 18:10 | disposition home or self-care (01) ==
LOC: LDRP 16:11 → UNDOADMOB 16:11 → LDRP 16:21 → UNDODISOB 18:10
PROVIDERS: ADMIT Obstetrics & Gynecology; ATTEND Obstetrics & Gynecology
DX: O13.3 Gestational [pregnancy-induced] hypertension without significant proteinuria, third trimester (principal); Z3A.34 34 weeks gestation of pregnancy; Z79.899 Other long term (current) drug therapy
CPT/HCPCS: 59025; 76819; 81001; 81002; 82570; 84156; 94760; A4649; G0378

== ENCOUNTER 2025-09-14 18:56 | Observation (INO) | payer MEDICAID ==
--- NOTE | 2025-09-23 17:23 | DVH ---
OB ULTRASOUND, LIMITED CLINICAL INDICATION: cHTN TECHNIQUE: Multiple grayscale ultrasound and M-mode images were obtained of the pelvis for evaluation of intrauterine . COMPARISON: US BIOPHYSICAL PROFILE on DOS: 09/19/25, US BIOPHYSICAL PROFILE on DOS: 09/16/25, US BIOPHYSICAL PROFILE on DOS: 09/11/25 FINDINGS: A single living fetus is seen in cephalic presentation. Biophysical profile: 05/02 breathin movements: 2 tone: 2 Amniotic fluid volume: 2 Placenta: Posterior, grade 2. Amniotic fluid: Visibly normal. PHOENIX 9.1 cm heart rate: 135 beats/min. A complete anatomic survey was not performed on this exam. IMPRESSION: 1. Biophysical profile: 05/02
--- NOTE | 2025-09-23 19:23 | DVHDS2 ---
Physician Discharge Progress N Final Diagnosis: testing for CHTN Operations or Procedures: Operations or Procedures S: 29yo IUP@36.2wks pt arrived for schedule NST and BPP due to cHTN. +FM, denies UCs/VB/LOF/SMITH/vision changes/RUQ pain. Pt taking labetalol. O: VSS, normotensive, see CPN NST reactive (last 20 minutes) BPP 8/8 PO hydration A: 29yo IUP@36.2wks CHTN P: D/C home FKC/PTL/preE precautions reviewed Dr. Guzman consulted, agrees with POC. f/u with Dr. Guzman in office as scheduled Other Interventions Other Interventions [place] [address] Ph: [phone] DIAGNOSTIC IMAGING Diagnostic Imaging Report : [id number] Signed PATIENT: DAVID PAULACCT: [id number] UNIT: [id number] : 1995 LOC: [facility] ROOM / BED: [facility] / A AGE / SEX: 29 / F ADM STATUS: ADM IN SERVICE 1651 ORDERING PHYSICIAN: ALICIA CHAVEZ CNM PROCEDURE(s): BPP - BIOPHYSICAL PROFILE REASON: cHTN ORDER NUMBER(s): [id number], ACCESSION NUMBER(s): [id number] OB ULTRASOUND, LIMITED CLINICAL INDICATION: cHTN TECHNIQUE: Multiple grayscale ultrasound and M-mode images were obtained of the pelvis for evaluation of intrauterine . COMPARISON: US BIOPHYSICAL PROFILE on DOS: 09/19/25, US BIOPHYSICAL PROFILE on DOS: 09/16/25, US BIOPHYSICAL PROFILE on DOS: 09/11/25 FINDINGS: A single living fetus is seen in cephalic presentation. Biophysical profile: 05/02 breathin movements: 2 tone: 2 Amniotic fluid volume: 2 Placenta: Posterior, grade 2. Amniotic fluid: Visibly normal. PHOENIX 9.1 cm heart rate: 135 beats/min. A complete anatomic survey was not performed on this exam. IMPRESSION: 1. Biophysical profile: 05/02 ATED BY: BLAIR CALLES MD DICTATED DATE/TIME: 09/23/251720 SIGNED BY: BLAIR CALLES MD SIGNED DATE/TIME: 09/23/25 172 CC: Condition on Discharge: Stable Disposition: Home Discharge Instructions: Diet: Regular Activity: No Restrictions, As Tolerated Medications: See med list Follow Up Care: Specialist: Dr. Guzman appointment as scheduled. Discharge Statement: "Patient was advised to return to the ER or call 911 if any headaches, dizziness, shortness of breath, chest pain, abdominal pain, bleeding, fevers, or worsening of medical condition. Patient was counseled about treatment plan, medications, possible side effects, patientverbalized understanding. All questions were answered to the best of my ability. This discharge took greater then 30 minutes in planning, reviewing documentation, counseling the patient, and discussing with other team members." Visit Coding OBGYN Date of Service: Sep 23, 2025 Billing Provider: ALICIA CHAVEZ CNM MANAGER [employer] Common Visit Codes: 05069-HEF/OBS DISCH DAY >30MIN MANAGER [employer] Procedure Codes: 60080-03- NON-STRESS TEST CHANDAN GALLO STUDENTMDW Sep 23, 2025 19:22
== END 2025-09-23 19:42 | disposition home or self-care (01) ==
LOC: LDRP 09-23 16:38
PROVIDERS: ADMIT Obstetrics & Gynecology; ATTEND Obstetrics & Gynecology
DX: O10.913 Unspecified pre-existing hypertension complicating pregnancy, third trimester (principal); Z3A.36 36 weeks gestation of pregnancy; Z98.890 Other specified postprocedural states
CPT/HCPCS: 59025; 76819; 81002; 94760; A4649; G0378

== ENCOUNTER 2025-09-16 15:00 | Observation (INO) | payer MEDICAID ==
--- NOTE | 2025-09-16 16:27 | DVH ---
BIOPHYSICAL PROFILE HISTORY: CHTN TECHNIQUE: Multiple transabdominal real-time grayscale sonographic images through the gravid uterus of the fetus with duplex Doppler color flow and M-mode spectral analysis FINDINGS: BIOPHYSICAL PROFILE: breathing score: 2 movement score: 2 tone score: 2 Quantitative PHOENIX score: 2 (PHOENIX: 8.6 Cm.) MVP: 2.5 cm Total score: 8 The cervix is not well-visualized Single live fetus in cephalic presentation. heart rate 146 beats per minute. Grade 1 Posterior placenta without previa or abruption IMPRESSION: Biophysical profile score: 8/8
--- NOTE | 2025-09-16 19:07 | DVHDS2 ---
Physician Discharge Progress N Final Diagnosis: testing for CHTN/preE Operations or Procedures: Operations or Procedures 29yo IUP@35.1wks, takes labetolol 300mg PO BID VSS, normotensive, see CPN NST reactive per RN [facility]/PTL/preE precautions reviewed Dr. Guzman consulted, agrees with POC. Other Interventions Other Interventions [place] [address] Ph: [phone] DIAGNOSTIC IMAGING Diagnostic Imaging Report : [id number] Signed PATIENT: DAVID PAULACCT: [id number] UNIT: [id number] : 1995 LOC: [facility] ROOM / BED: TRIAGE1 / A AGE / SEX: 29 / F ADM STATUS: ADM IN SERVICE 1513 ORDERING PHYSICIAN: ALICIA CHAVEZ CNM PROCEDURE(s): BPP - BIOPHYSICAL PROFILE REASON: CHTN ORDER NUMBER(s): [id number], ACCESSION NUMBER(s): [id number] BIOPHYSICAL PROFILE HISTORY: CHTN TECHNIQUE: Multiple transabdominal real-time grayscale sonographic images through the gravid uterus of the fetus with duplex Doppler color flow and M-mode spectral analysis FINDINGS: BIOPHYSICAL PROFILE: breathing score: 2 movement score: 2 tone score: 2 Quantitative PHOENIX score: 2 (PHOENIX: 8.6 Cm.) MVP: 2.5 cm Total score: 8 The cervix is not well-visualized Single live fetus in cephalic presentation. heart rate 146 beats per minute. Grade 1 Posterior placenta without previa or abruption IMPRESSION: Biophysical profile score: 8/8 ATED BY: MATILDA VELÁSQUEZ DO DICTATED DATE/TIME: 09/16/251624 SIGNED BY: MATILDA VELÁSQUEZ DO SIGNED DATE/TIME: 09/16/251624 CC: Condition on Discharge: Stable Disposition: Home Discharge Instructions: Diet: Cardiac 2g Na,low cholest (2 gm sodium, low cholesterol) Activity: No Restrictions, As Tolerated Medications: SEE MED LIST Follow Up Care: Specialist: f/u in 3 days Discharge Statement: "Patient was advised to return to the ER or call 911 if any headaches, dizziness, shortness of breath, chest pain, abdominal pain, bleeding, fevers, or worsening of medical condition. Patient was counseled about treatment plan, medications, possible side effects, patientverbalized understanding. All questions were answered to the best of my ability. This discharge took greater then 30 minutes in planning, reviewing documentation, counseling the patient, and discussing with other team members." Visit Coding OBGYN Date of Service: Sep 16, 2025 Billing Provider: ALICIA CHAVEZ CNM DIRECTOR EXTERNAL COMMUNICATIONS Common Visit Codes: 19210-[id number] OBS CARE (HIGH) DIRECTOR EXTERNAL COMMUNICATIONS Procedure Codes: 35467-50- NON-STRESS TEST ALICIA CHAVEZ CNM Sep 16, 2025 19:07
== END 2025-09-16 16:55 | disposition home or self-care (01) ==
LOC: LDRP 15:00
PROVIDERS: ADMIT Obstetrics & Gynecology; ATTEND Obstetrics & Gynecology
DX: O13.3 Gestational [pregnancy-induced] hypertension without significant proteinuria, third trimester (principal); Z3A.35 35 weeks gestation of pregnancy; Z98.890 Other specified postprocedural states
CPT/HCPCS: 59025; 76819; 81002; A4649; G0378

== ENCOUNTER 2025-09-19 14:05 | Observation (INO) | payer MEDICAID ==
--- NOTE | 2025-09-19 15:55 | DVH ---
BIOPHYSICAL PROFILE HISTORY: CHTN TECHNIQUE: Multiple transabdominal real-time grayscale sonographic images through the gravid uterus of the fetus with duplex Doppler color flow and M-mode spectral analysis FINDINGS: Biophysical score of 8/8. heart rate of 138 beats per minute. Cephalic position. PHOENIX of 8.6 cm. Posterior placental location. No placenta previa or abruptio. IMPRESSION: 1. Biophysical profile score: 8/8
[2025-09-19] MEDS ORDERED: LABETALOL HCL 200 MG TAB PO SCH (22:00)
--- NOTE | 2025-09-20 05:40 | DVHDS2 ---
Physician Discharge Progress N Final Diagnosis: chtn 35wks Operations or Procedures: Operations or Procedures nst reactive reviwed,sono Condition on Discharge: Good Disposition: Home Discharge Instructions: Diet: Cardiac 2g Na,low cholest Activity: No Restrictions, As Tolerated Medications: na Follow Up Care: Specialist: 2d Discharge Statement: "Patient was advised to return to the ER or call 911 if any headaches, dizziness, shortness of breath, chest pain, abdominal pain, bleeding, fevers, or worsening of medical condition. Patient was counseled about treatment plan, medications, possible side effects, patientverbalized understanding. All questions were answered to the best of my ability. This discharge took greater then 30 minutes in planning, reviewing documentation, counseling the patient, and discussing with other team members." Visit Coding OBGYN Date of Service: Sep 19, 2025 Billing Provider: MINOR ELIAS DO BILLBOARD MECHANIC Common Visit Codes: 95523-[id number] INP/OBS CARE (HIGH) BILLBOARD MECHANIC Procedure Codes: 09415-75- NON-STRESS TEST MINOR ELIAS DO Sep 20, 2025 05:40
[2025-09-26] MEDS ORDERED: HYDR-4902 PO (19:18)
[2025-09-26] MEDS ORDERED: DOCU-94 PO (19:18)
[2025-09-26] MEDS ORDERED: IBUP-1456 PO (19:18)
== END 2025-09-19 16:10 | disposition home or self-care (01) ==
LOC: LDRP 14:05 → UNDOADMOB 14:05
PROVIDERS: ADMIT Obstetrics & Gynecology; ATTEND Obstetrics & Gynecology
DX: O13.3 Gestational [pregnancy-induced] hypertension without significant proteinuria, third trimester (principal); Z3A.35 35 weeks gestation of pregnancy; Z98.890 Other specified postprocedural states
CPT/HCPCS: 59025; 76819; 81002; 94760; A4649; G0378